=== PATIENT | female | born 1980 | race Caucasian/White ===

== ENCOUNTER → 2020-08-28 | Outpatient (CLI) | payer OTHER ==
[~2020-08-28] MED LIST: LOPRESSOR 25 MG25 MG PO; MILK THISTLE500 MG PO; NORCO 5-325 TA1 EACH PO; OMEPRAZOLE20 M1 PO; VITAMIN C1500 MG PO
== END ==
LOC: HEART 5 10:41
DX: R00.2 Palpitations (principal)

== ENCOUNTER → 2021-10-02 | Outpatient (CLI) | payer OTHER | LOC: HEART 5 15:23 | DX: R00.2 Palpitations (principal); R42 Dizziness and giddiness; R06.02 Shortness of breath ==

== ENCOUNTER → 2022-01-29 | Outpatient (CLI) | payer OTHER | LOC: KOH-I 14:52 | DX: M54.2 Cervicalgia (principal); M47.812 Spondylosis without myelopathy or radiculopathy, cervical region | CPT/HCPCS: 72040 ==